=== PATIENT | female | born 1970 | race Caucasian/White ===

== ENCOUNTER 2024-04-11 11:05 | Emergency (ER) | payer OTHER, MEDICAID ==
[~2024-04-11] VITALS: Ht 175.3 cm; Wt 150.0 kg
[2024-04-11 11:05] VITALS: BP 0/0
[2024-04-11 11:30] VITALS: RESP 18; O2SAT 100
--- NOTE | 2024-04-11 11:34 | ED.PDOC ---
CPR-HPI HPI Comments 53 y.o female presents to the ED via EMS under cardiac arrest. Mother at bedside reports patient has been having leg weakness for a couple of weeks now, has fallen due to the weakness in the past. Patient was out with mother today, while in the store, patient complained of progressively worsening weakness of her legs, was assisted by mother down to the floor where bystanders helped and 911 was called. Mother reports patient was still responsive but became pale in appearance and lethargic when paramedics arrived. EMS reports when assisting patient to the [facility], she was at her normal baseline per mother. EMS was close to the ED when patient's rhythm changed rapidly to PEA and CPR was immediately initiated in the ambulance. Nothing given as paramedics were 1-2 minutes out from ED. Patient presented to the ED at 1103 and intubated. Time Seen by MD: 11:03 Reviewed Notes: Nurses Notes, Technical Service Engineer Notes, Medications, Allergies Information Source: Relative (Mother), Emergency Med Personnel Mode of Arrival: EMS Timing: Minutes Duration: Down time prior EMS: (1-2 minutes ), Total time prior hopital: (2-5 minutes ) Onset: With exertion Available Hx: Unknown (leg weakness ) Inital rhythm: PEA Treatment: CPR Response: No response Associated signs and symptoms: Other (leg weakness ) Past Medical History PAST MEDICAL HISTORY: Depression, DM, HTN Past Medical History (Other): autism, intellectually delayed Surgical History: Denies all surgeries GENERAL MANAGER IN TRAINING History: No Pertinent GENERAL MANAGER IN TRAINING History Family History Family History: Reviewed,noncontributory to illness Social History Smoker: Non-Smoker Alcohol: Denies ETOH Use Drugs: Denies Drug Use Lives In: Home Unable to Obtain due to: Medical Urgency Physical Exam General Appearance: Severe Distress HEENT: Other (Pupils fixed and dilated) Neck: Normal Inspection Respiratory: Respiratory Distress, Other (Intubated the patient) Cardiovascular: Other (No rhythm) Breast Exam: Deferred Gastrointestinal: Soft Genitalia: Deferred Pelvic: Deferred Rectal: Deferred Extremities: NOT DONE Musculoskeletal : Apperance: Normal Neurologic: Other (Unconscious) Cerebellar Function: NOT DONE Reflexes: NOT DONE Skin: Pallor Peripheral Pulses: 0 Radial (R), 0 Radial (L) Lymphatic: NOT DONE Was a procedure done? Was a procedure done?: Yes Sedation Sedation?: No Informed consent obtained: No (emergent- consent by mother) Central Line Recorder of insertion practice: Rn Lpn Lvn Occupation of lining inserter: Attending Physician Indication: CVP monitoring, Volume resuscitation Room prepared for procedure: Yes Rn Lpn Lvn performed hand hygien: Yes Maximal sterile barrier precau: Mask/Eye shield, Sterile gown, Cap, Sterlie gloves, Large sterlie drape Skin Preparation: Providine iodine Skin preparation completely dr: Yes Insertion site: Right, Femoral Central line catheter type: Tunneled- not dialysis Number of lumens: 3 Central line exchanged over a: Yes Antiseptic ointment applied to: Yes Post Assessment: Chest X-Ray, Proper placement UTO Consent Mother aware Intubation Indication: Respiratory Insufficiency, Altered Mental Status, Airway Protection Prep: No Preoxygenation Pretreated with: Sedation Medicated with: Nothing Intubation Approach: Orotracheal Intubation size: cm (size 8 tube ) Informed consent obtained: No Risks/benefits/alt described: No UTO Consent Mother consented Differential Dx CPR Differential Diagnosis: Cardiopulmonary arrest, Heart Block, Pneumothorax, Pulmonary Embolus X-Ray, Labs, Meds, VS Vital Signs Date Time Temp Pulse Resp B/P (MAP) Pulse Ox O2 Delivery O2 Flow Rate FiO2 04/11/24 11:37 118 Patient unconscious. No CPR. No oxygenation. Obese. Pale in color when she came to the ER. No intravenous access. Placed a central line. Intubated the patient. ACLS drugs use pain Was able to revive the patient. Went back into asystole. V-tach. Shocked. Was given amiodarone. Mother at bedside. Spoke with team. Unable to revive. Had to pronounce. Time of 1ST Reevaluation: 11:57 Reevaluation 1ST: Unchanged Patient Education/Counseling: Pt Unresponsive Family Education/Counseling: Other (Mother came with the patient) Additional Information Additional information was gathered from interviewing the following independent historians: Mother and paramedics I discussed treatments and results with medical personnel and mother Departure 1 Departure Time of Disposition: 12:05 Impression: Primary Impression: Cardiac arrest Additional Impression: Respiratory failure Qualified Codes: J96.01 - Acute respiratory failure with hypoxia Disposition: 20 Condition: Poor Critical Care Note Critical Care Time?: Yes (45 min-critical care time only) Heart Score Heart Score: Heart Score Response (Comments) Value History N/A 0 EKG N/A 0 Age N/A 0 Risk Factors N/A 0 Troponin N/A 0 Total 0 Stability Stability form required: No I personally scribed for ROQUE MILIAN MD ([email or web address]) on 04/11/24 at 11:34. Electronically submitted by Maria Del Carmen Valdez ([facility]). I personally scribed for ROQUE MILIAN MD ([email or web address]) on 04/11/24 at 11:54. Electronically submitted by Maria Del Carmen Valdez ([facility]). ROQUE MILIAN MD Apr 11, 2024 11:34
[2024-04-11 11:37] VITALS: PULSE 118
[2024-04-11] MEDS ORDERED: EPINEPHrine HCL 1 MG/10 ML SYRG ONE (11:42)
--- NOTE | 2024-04-11 12:28 | RESUS ---
CODE BRENNON ASSESSSMENT History of Events History of Events: SECURED CODE BRENNON ARRIVED AT 0803 WITH EMS PROVIDING COMPRESSIONS. ARRIVED WITH NO AIRWAY AND NO IV ACCESS. Initial Information Date: Apr 11, 2024 Time: 11:03 Arrest Witnessed: Yes (WITH EMS) CPR started by whom: EMS Type of arrest: Cardiac Spontaneous Respirations: No Pulse Present: No Monitoring: ECG, Pulse Oximetry Crash Cart Opened and Supplies: Yes Airway Ventilation Oxygen Delivery Method: Ambu-Bag Time of first Assisted Ventila: 11:03 Artificial Ventilation: Bag/Mask Intubation Time: 11:05 Intubation Size: 8.0 cuffed Intubated by: DR MILIAN Intubation Attempts: 1 Intubated orally: Yes Tube secured at: 24 CO2 indicator used: Yes Confirmation: Auscultation, Exhaled CO2 Suctioning (Oral/Tracheal): Yes Circulation Circulation #1: Time: 11:03 Circulation Comment: ASYSTOLE Circulation #2: Time: 11:05 Circulation Comment: ASYSTOLE Circulation #3: Time: 11:07 Circulation Comment: ASYSTOLE Circulation #4: Time: 11:09 Temperature (Fahrenheit): 98.8 Circulation Comment: TEMP-AXILLARY Circulation #5: Time: 11:11 Circulation Comment: VTACH SHOCKED AT 120 JOULES Circulation #6: Time: 11:13 Circulation Comment: PEA Circulation #7: Time: 11:15 Circulation Comment: PEA Circulation #8: Time: 11:17 Circulation Comment: ASYSTOLE Circulation #9: Time: 11:19 Circulation Comment: ASYSTOLE Circulation #10: Time: 11:21 Pulse Rate (adult): 115 Blood Pressure Systolic: 115 Blood Pressure Diastolic: 90 Circulation Comment: ROSC Circulation #11: Time: 11:38 Circulation Comment: BRADYCARDIC THEN LOST PULSES Circulation #12: Time: 11:40 Circulation Comment: ASYSTOLE Circulation #13: Time: 11:42 Circulation Comment: V TACH SHOCKED AT 120 JOULES Circulation #14: Time: 11:44 Circulation Comment: PEA Circulation #15: Time: 11:46 Circulation Comment: PEA Procedure - IV Procedure - IV : IV start time: 11:10 IV Side: Right IV Location: Femoral IV Catheter Type: Triple Lumen Cath IV Placed: MD (DR MILIAN) Medications & Response Medications and Responses #1: Medication Time: 11:05 ADULT Medications Given ADULT: Epinephrine 1 mg Route of Administration: ET TUBE Medications and Responses #2: Medication Time: 11:10 ADULT Medications Given ADULT: Epinephrine 1 mg, Sodium Bacarbinate 50 meq, Calcium Chloride 10 mL Route of Administration: IV Medications and Responses #3: Medication Time: 11:13 ADULT Medications Given ADULT: Sodium Bacarbinate 50 meq Route of Administration: IV Medications and Responses #4: Medication Time: 11:14 ADULT Medications Given ADULT: Epinephrine 1 mg, Atropine 1 mg, Amiodarone 300 mg Route of Administration: IV Medications and Responses #5: Medication Time: 11:16 ADULT Medications Given ADULT: Sodium Bacarbinate 50 meq Route of Administration: IV Medications and Responses #6: Medication Time: 11:17 ADULT Medications Given ADULT: Epinephrine 1 mg Route of Administration: IV Medications and Responses #7: Medication Time: 11:20 ADULT Medications Given ADULT: Epinephrine 1 mg Route of Administration: IV Medications and Responses #8: Medication Time: 11:40 ADULT Medications Given ADULT: Epinephrine 1 mg Route of Administration: IV Nurses Notes Trisha Coma Scale Eye Opening: None (1) [place] Coma Scale Verbal: None (1) [place] Coma Scale Motor: None (1) Pupil Reaction: Non Reactive Bedside Blood Glucose: 142 (AT 1109) Nurses Notes - Comment: DR MILIAN SPOKE WITH MOTHER AT BEDSIDE WITH TRESTLEMAN Time Code Ended Time Code Ended: 11:47 Post Arrest Status: Outcome of code: Unsuccessful Patient pronounced by: DR MILIAN Time patient pronounced: 11:47 Family notified: Yes Code Team Present: LUIGI STRONG RN, DAYANA RN, VALERIA RN, FRANCA SHIPYARD PAINTER APPRENTICE, VADIM SHIPYARD PAINTER APPRENTICE, TABITHA RN, NASH RT, GURVINDER RT, HEATHER RT, Luigi Ng Apr 11, 2024 12:28
--- NOTE | 2024-04-11 19:14 | ECG ---
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
== END 2024-04-11 11:47 ==
LOC: ER 11:05 → EDBD 11:05 → ER 11:47
DX: I46.9 Cardiac arrest, cause unspecified (principal); J96.90 Respiratory failure, unspecified, unspecified whether with hypoxia or hypercapnia; I10 Essential (primary) hypertension; E11.9 Type 2 diabetes mellitus without complications; F32.9 Major depressive disorder, single episode, unspecified; F84.0 Autistic disorder
CPT/HCPCS: 31500; 36569; 92950; 93005; 99291; J0171